=== PATIENT | male | born 1970 | race Caucasian/White ===

== ENCOUNTER 2024-11-07 20:17 | Emergency (ER) | payer BC ==
[~2024-11-07] VITALS: Ht 195.6 cm; Wt 88.6 kg
[2024-11-07] MEDS: LIDOcaine 1% W/epiNEPHrine 1:100,000 20ml vial SQ ONE (21:39)
[2024-11-07] MEDS: TETanus/Pertussis (Acell)/Diphther VAC/PF (Tdap-Adult) 0.5ml syringe IMVAC ONE (21:43)
[2024-11-07 22:12] VITALS: BP 140/89; PULSE 72; RESP 18; TEMP 98.6; O2SAT 99
== END 2024-11-07 22:27 | disposition home or self-care (01) ==
LOC: ER 20:19
DX: S01.01XA Laceration without foreign body of scalp, initial encounter (principal); W18.39XA Other fall on same level, initial encounter; Y93.89 Activity, other specified; Y92.89 Other specified places as the place of occurrence of the external cause; Y99.8 Other external cause status
CPT/HCPCS: 12001; 90471; 90715; 99283; J3490